=== PATIENT | female | born 1945 | race Caucasian/White ===

== ENCOUNTER → 2019-02-12 12:42 | Outpatient (CLI) | payer MEDICARE, SELFPAY ==
--- NOTE | 2019-02-12 | DI.RAD.S_ITS ---
PROCEDURE: XR CHEST 2V INDICATIONS: Acquired absence of other specified parts of digestive tract TECHNIQUE: 2 views of the chest were acquired. COMPARISON: [facility], , CHEST 2 VIEW, 03/17/2016, 15:07. FINDINGS: Surgical changes and devices: None. Lungs and pleura: Lungs are clear. No pleural effusions or pneumothorax. Mediastinum: Mediastinal contours are normal. Heart size is normal. Bones and chest wall: No suspicious bony abnormalities. Soft tissues appear unremarkable. IMPRESSION: No acute cardiopulmonary disease. Dictated by: Mili Campbell M.D. on 02/12/2019 at 14:52 Approved by: Mili Campbell M.D. on 02/12/2019 at 14:53
== END ==
PROVIDERS: Family Provider Family Medicine; PCP Family Medicine
DX: Z01.811 Encounter for preprocedural respiratory examination (principal); K55.9 Vascular disorder of intestine, unspecified; Z93.3 Colostomy status; Z98.890 Other specified postprocedural states; Z90.49 Acquired absence of other specified parts of digestive tract
CPT/HCPCS: 71046

== ENCOUNTER 2019-04-27 14:10 | Emergency (ER) | payer MEDICARE, SELFPAY ==
[2019-04-27 14:20] VITALS: BP 135/79; PULSE 74; RESP 12; TEMP 36.8; O2SAT 98
--- NOTE | 2019-04-27 15:05 | ED.ABDPAIN ---
HPI - Abdominal Pain General Chief Complaint: Abdominal Pain Stated Complaint: might have damaged a surgical sight abdominal loc Time Seen by Provider: 04/27/19 14:19 Source: patient Mode of arrival: ambulatory Limitations: no limitations History of Present Illness HPI narrative: Patient is a 73-year-old female who presents with abdominal pain. 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 6 weeks ago she had a takedown reversal of her colostomy in [place]. That has been healing well. She continues to have bowel movements and passing gas. However she is 6 weeks out from her takedown she states she pushed a very heavy statue across the floor the other day and is now feeling some bloating and some abdominal discomfort. She denies any nausea or vomiting. MD complaint: abdominal pain Pain Consistency: constant Severity: mild Quality: fullness Migration to: no migration Relieving factors: nothing Exacerbating factors: nothing Related Data Home Medications Medication Instructions Recorded Confirmed dextroamphetamine-amphetamine 1 tab PO Q DAY #0 11/11/10 [Adderall XR] Review of Systems Review of Systems GENERAL: Denies chills, fatigue, malaise, fever, sweats, travel HEENT: Denies sinus pain, ear pain, sore throat, difficulty swallowing, neck pain RESPIRATORY: Denies dyspnea, cough, wheezing, hemoptysis, sputum. CARDIOVASCULAR: Denies chest pain, palpitations, orthopnea, edema GASTROINTESTINAL: See HPI : Denies dysuria, frequency, incontinence, hematuria, urinary retention, flank pain. MUSCULOSKELETAL: Denies weakness, joint pain, or bony pain SKIN: No rash, no erythema, no pruritus NEUROLOGIC: Denies weakness, dizziness, headache, numbness, change in speech, confusion PSYCHIATRIC: No concerning psychosocial issues. 12 point review of systems is negative except for those stated above and HPI [facility] Medical History Hyperlipidemia (Acute) Hypertension (Acute) Social History (Updated 04/27/19 @ 16:17 by Khushi Rodriguez DO) Smoking Status: Never smoker alcohol intake: never substance use type: does not use Social History Smoking Status: Never smoker alcohol intake: never substance use type: does not use Exam Initial Vital Signs Initial Vital Signs: Vital Signs Temperature 98.2 F 04/27/19 14:20 Pulse Rate 74 04/27/19 14:20 Respiratory Rate 12 04/27/19 14:20 Blood Pressure 135/79 04/27/19 14:20 Pulse Oximetry 98 04/27/19 14:20 GENERAL: Well-appearing, well-nourished and in no acute distress. HEENT: Head atraumatic,EOMI, pupils reactive, CARDIOVASCULAR: Regular rate and rhythm without murmurs, rubs or gallops. RESPIRATORY: Breath sounds equal bilaterally, no wheezes rales or rhonchi. ABDOMEN: Soft, no significant distension, scarring. Site of colostomy noted no significant erythema no bleeding EXTREMITIES: Normal range of motion, no clubbing or edema. Neurovascularly intact NEUROLOGICAL: Alert and oriented x4.Normal gait and speech. Cranial nerves II through XII grossly intact. SKIN: Warm, dry, no laceration, no petechiae, no rashes or lesions. Course Orders Ordered: ED Orders 04/27/19 15:05 CT abdomen pelvis w con Stat 04/27/19 15:15 Complete Blood Count AUTO DIFF Stat Comprehensive Metabolic Panel Stat Lipase Stat 04/27/19 16:46 Amylase Stat C-Reactive Protein Quant Stat Vital Signs - 8 hr 04/27/19 14:20 04/27/19 17:10 Temperature 98.2 F Pulse Rate 74 85 Respiratory Rate 12 16 Blood Pressure 135/79 130/83 Pulse Oximetry 98 97 MDM - Abdominal Pain Lab Data Attestation: I reviewed the patient's lab results. Result diagrams: 04/27/19 15:15 04/27/19 15:15 Lab Results 04/27/19 04/27/19 04/27/19 Range/Units 15:15 15:15 16:46 WBC 6.9 (4.5-11.0) X10^3/uL RBC 4.20 (4.0-5.2) X10^6/uL Hgb 13.2 (12.0-16.0) g/dL Hct 38.5 (36-46) % MCV 91.6 (80-100) fL MCH 31.4 (26-34) PG MCHC 34.3 (30-36) % RDW 13.3 (11.6-14.8) % Plt Count 453 H (150-400) X10^3/uL Neut % (Auto) Not Reportable Lymph % (Auto) Not Reportable [place] % (Auto) Not Reportable Eos % (Auto) Not Reportable Baso % (Auto) Not Reportable Lymph # (Auto) Not Reportable [place] # (Auto) Not Reportable Baso # (Auto) Not Reportable Total Counted 100 Seg Neutrophils % 55.0 (38-70) % Lymphocytes % (Manual) 36.0 (25-45) % Atypical Lymphs % 1.0 H ( - 0) % Monocytes % (Manual) 8.0 (2-11) % Neutrophils # (Manual) 3795 (4202-8899) /uL RBC Morphology Normal morphology Sodium 138 (137-145) mmol/L Potassium 4.0 (3.4-5.1) mmol/L Chloride 101 (98-107) mmol/L Carbon Dioxide 27 (22-32) mmol/L BUN 22 H (7-17) mg/dL Creatinine 0.60 (0.52-1.04) mg/dL Estimated GFR > 60.0 (>60) mL/min BUN/Creatinine Ratio 36.7 H (6-22) Glucose 97 (80-110) mg/dL Calcium 9.5 (8.4-10.2) mg/dL Total Bilirubin 0.9 (0.2-1.3) mg/dL AST 25 (14-36) IU/L ALT 38 (9-52) IU/L Alkaline Phosphatase 85 (38-126) U/L C-Reactive Protein < 0.5 (<1.0) mg/dL Total Protein 6.8 (6.3-8.2) g/dL Albumin 4.3 (3.5-5.0) g/dL Globulin 2.5 (1.7-4.1) g/dL Albumin/Globulin Ratio 1.7 (1.0-2.8) Amylase 197 H (30-110) U/L Lipase 1325 H (23-300) U/L Imaging Data CT scan - abdomen: Radiologist's impression: PROCEDURE: CT ABDOMEN PELVIS W CON INDICATIONS: ab pain recent surgery and colostomy take down TECHNIQUE: After the administration of intravenous contrast, 5 mm thick sections acquired from the diaphragm to the symphysis. 5 mm coronal and sagittal reformats were acquired. For radiation dose reduction, the following was used: automated exposure control, adjustment of mA and/or kV according to patient size. COMPARISON: None. FINDINGS: Image quality: Excellent. ABDOMEN: Lung bases: Lung bases are clear. Heart size is normal. Solid organs: Liver is normal in size and enhancement. Gallbladder wall is not thickened. Biliary system is non dilated. Pancreas enhances normally. Spleen is normal in size and enhancement. No adrenal nodules. Kidneys demonstrate normal size and enhancement, without hydronephrosis. On the posterior aspect of the right kidney anteriorly, there is a 9 mm exophytic lesion that measures 30 Hounsfield units. No additional focal renal lesions are seen. Peritoneum and bowel: There is a sigmoid anastomotic staple line seen. No focal abnormalities are seen at this site. No dilated loops of small bowel are seen. Air or significant free fluid can be seen. No loculated abscess collections are seen. Nodes and vessels: No retroperitoneal or mesenteric adenopathy by size criteria. Aorta and inferior vena cava are normal in size. Miscellaneous: No ventral hernias. Her postoperative change of the inferior wall cannot be seen. PELVIS: Genitourinary: Bladder wall thickness is normal. Miscellaneous: No inguinal hernias or adenopathy. Bones: No suspicious bony lesions. No vertebral body compression fractures. Mild dextroconvex scoliotic curvature is seen. Age-appropriate bony degenerative changes are seen, which are worse involving the L4-L5 and S1 levels. IMPRESSION: No imaging explanation is found for this patient's presenting symptoms. Postoperative change of the sigmoid colon, with an anastomotic staple line. Incidental note is made of a 9 mm lesion along the posterior aspect of the right kidney that cannot be defined as a simple cyst. Additional imaging is recommended, either with a renal ultrasound (to confirm a hyperdense cyst) or a renal mass protocol CT (to evaluate for the possibility of a renal mass). Incidental note is made of: Lower lumbar spine degenerative change Dextroconvex scoliotic curvature Dictated by: Ronny Chirinos M.D. on 04/27/2019 at 15:12 MDM Narrative Medical decision making narrative: Patient is noted to have elevated lipase of 1300. She has no significant abdominal pain no nausea no vomiting. She can tolerate oral fluids. She does not have signs or symptoms of pancreatitis clinically. CT also does not mention any signs of pancreatitis. I have called and spoken with patient's PCP Dr. Rivera. She has an appointment with her tomorrow morning. She recommends adding amylase and CRP, will follow up with patient tomorrow at likely recheck labs. But agrees with patient going home. At this time patient is wanting to go home and not be admitted. Discharge Plan Departure Patient Disposition: Home Clinical Impression: Abdominal pain Qualifiers: Abdominal location: left lower quadrant Qualified Code(s): R10.32 - Left lower quadrant pain Discharge Date/Time: 04/27/19 17:11 Interventions: ED Discharge Assessment Last Done: 04/27/19 17:10 Instructions: DI for Abdominal Pain-Adult Activity Restrictions/Additional Instructions: *You have been diagnosed with abdominal pain *What to do: Blood work in CT today do not show any abnormality *Continue to take medications as directed *Follow up with your primary care provider in 2-3 days *Return to ER if you should have increased abdominal pain persistent vomiting bloating or any new, worsening or concerning symptoms Prescriptions: No Action dextroamphetamine-amphetamine [Adderall XR] 5 MG capsule,extended release 24hr 1 tab PO Q DAY Qty: 0 RF: 0 Referrals: Mery Rivera MD [Primary Care Provider] -
[2019-04-27 15:24] LABS: Hematocrit 38.5 % (36-46); Hemoglobin 13.2 g/dL (12.0-16.0); Mean Corpuscular HGB Conc 34.3 % (30-36); Mean Corpuscular Hemoglobin 31.4 PG (26-34); Mean Corpuscular Volume 91.6 fL (80-100); Platelet Count 453 X10^3/uL (150-400); Red Cell Distribution Width 13.3 % (11.6-14.8); White Blood Cell Count 6.9 X10^3/uL (4.5-11.0)
[2019-04-27 15:33] LABS: Add Manual Diff / Slide Review YES
[2019-04-27 15:38] LABS: Alanine Aminotransferase 38 IU/L (9-52); Albumin 4.3 g/dL (3.5-5.0); Albumin Globulin Ratio 1.7 (1.0-2.8); Alkaline Phosphatase 85 U/L (38-126); Aspartate Aminotransferase 25 IU/L (14-36); BUN Creatinine Ratio 36.7 (6-22); Bilirubin Total 0.9 mg/dL (0.2-1.3); Blood Urea Nitrogen 22 mg/dL (7-17); Calcium 9.5 mg/dL (8.4-10.2); Carbon Dioxide 27 mmol/L (22-32); Chloride 101 mmol/L (98-107); Estimated Glomerular Filt Rate > 60.0 mL/min (>60); Globulin 2.5 g/dL (1.7-4.1); Glucose 97 mg/dL (80-110); HEMOLYSIS < 15 (0-50); Lipase 1325 U/L (23-300); Sodium 138 mmol/L (137-145); Total Protein 6.8 g/dL (6.3-8.2)
[2019-04-27 16:39] LABS: Neutrophils Absolute Manual 3795 /uL (3000-5900); RBC Morphology Normal Morphology; Total Cells Counted 100
[2019-04-27 16:58] LABS: Amylase 197 U/L (30-110)
[2019-04-27 17:00] LABS: C-Reactive Protein Quant < 0.5 mg/dL (<1.0)
[2019-04-27 17:10] VITALS: BP 130/83; PULSE 85; RESP 16; O2SAT 97
== END 2019-04-27 17:11 | disposition home or self-care (01) ==
PROVIDERS: Emergency Provider Emergency Medicine; PCP Family Medicine
DX: R10.32 Left lower quadrant pain (principal)
CPT/HCPCS: 36591; 74177; 80053; 82150; 83690; 85025; 86140; 99282; 99285; Q9967

== ENCOUNTER → 2019-08-23 12:03 | Outpatient (CLI) | payer MEDICARE, SELFPAY ==
--- NOTE | 2019-08-23 | DI.MG.S_ITS ---
BILATERAL DIGITAL SCREENING MAMMOGRAM 3D/2D WITH CAD: 08/23/2019 CLINICAL: Routine screening. Family history of breast cancer. Comparison is made to exams dated: 08/06/2017 mammogram, 08/19/2015 mammogram, and 05/25/2014 mammogram - [facility]. There are scattered fibroglandular elements in both breasts. Current study was also evaluated with a Computer Aided Detection (CAD) system. No significant masses, calcifications, or other findings are seen in either breast. There has been no significant interval change. IMPRESSION: NEGATIVE There is no mammographic evidence of malignancy. A 1 year screening mammogram is recommended. This exam was interpreted at Station ID: [id number]. NOTE: For mammograms, a report in lay terms will be sent to the patient. Approximately 15% of breast malignancies will not be visualized mammographically. In the management of a palpable breast mass, a negative mammogram must not discourage biopsy of a clinically suspicious lesion. Electronically Signed By: Emeterio good/pardeep:08/25/2019 08:44:02 letter sent: Normal Exam ACR BI-RADS Category 1: Negative 3341F
== END ==
PROVIDERS: PCP Family Medicine; Visit Provider Family Medicine
DX: Z12.31 Encounter for screening mammogram for malignant neoplasm of breast (principal); Z80.3 Family history of malignant neoplasm of breast
CPT/HCPCS: 77063; 77067

== ENCOUNTER → 2020-11-03 10:39 | Outpatient (CLI) | payer MEDICARE, OTHER, SELFPAY ==
--- NOTE | 2020-11-03 | DI.MG.S_ITS ---
BILATERAL DIGITAL SCREENING MAMMOGRAM 3D/2D WITH CAD: 11/03/2020 CLINICAL: Routine screening. Family history of breast cancer. Comparison is made to exams dated: 08/06/2017 mammogram, 08/23/2019 mammogram, and 08/19/[address] mamm[address] - [facility]. There are scattered fibroglandular elements in both breasts. Current study was also evaluated with a Computer Aided Detection (CAD) system. No significant masses, calcifications, or other findings are seen in either breast. There has been no significant interval change. IMPRESSION: NEGATIVE There is no mammographic evidence of malignancy. A 1 year screening mammogram is recommended. This exam was interpreted at Station ID: [id number]. NOTE: For mammograms, a report in lay terms will be sent to the patient. Approximately 15% of breast malignancies will not be visualized mammographically. In the management of a palpable breast mass, a negative mammogram must not discourage biopsy of a clinically suspicious lesion. Electronically Signed By: Damian roldan/pardeep:11/03/2020 11:26:15 copy to: Carson Mathews MD, Dr. Carson Mathews, ph: [phone] letter sent: Normal Exam ACR BI-RADS Category 1: Negative 3341F
== END ==
PROVIDERS: PCP Family Medicine; Referring Provider Family Medicine; Visit Provider Family Medicine
DX: Z12.31 Encounter for screening mammogram for malignant neoplasm of breast (principal); Z80.3 Family history of malignant neoplasm of breast
CPT/HCPCS: 77063; 77067

== ENCOUNTER → 2021-08-04 08:31 | Outpatient (CLI) | payer MEDICARE, OTHER, SELFPAY ==
[2021-08-04 09:22] LABS: Add Manual Diff / Slide Review NO; Basophils Absolute Auto 100 /uL (0-100); Eosinophils Absolute Auto 100 /uL (0-450); Eosinophils Percent Auto 3.2 % (2-4); Hematocrit 36.8 % (36-46); Hemoglobin 12.6 g/dL (12.0-16.0); Lymphocytes Absolute Auto 1500 /uL (1100-4500); Lymphocytes Percent Auto 49.7 % (25-40); Mean Corpuscular HGB Conc 34.1 % (30-36); Mean Corpuscular Volume 91.1 fL (80-100); Monocytes Absolute Auto 400 /uL (0-900); Monocytes Percent Auto 12.5 % (3-14); Neutrophils Absolute Auto 1000 /uL (1500-7000); Neutrophils Percent Auto 31.6 % (50-75); Platelet Count 342 X10^3/uL (150-400); Red Blood Cell Count 4.05 X10^6/uL (4.0-5.2); Red Cell Distribution Width 14.2 % (11.6-14.8)
[2021-08-04 10:14] LABS: Alanine Aminotransferase 29 IU/L (<35); Albumin 3.8 g/dL (3.5-5.0); Albumin Globulin Ratio 1.7 (1.0-2.8); Alkaline Phosphatase 75 U/L (38-126); Aspartate Aminotransferase 25 IU/L (14-36); BUN Creatinine Ratio 25.9 (6-22); Bilirubin Total 1.1 mg/dL (0.2-1.3); Blood Urea Nitrogen 21 mg/dL (7-17); Calcium 9.4 mg/dL (8.4-10.2); Carbon Dioxide 30 mmol/L (22-32); Chloride 105 mmol/L (98-107); Cholesterol 162 mg/dL (140-199); Estimated Glomerular Filt Rate > 60.0 mL/min (>60); Globulin 2.2 g/dL (1.7-4.1); Glucose 93 mg/dL (80-110); HDL Cholesterol 69 mg/dL (40-60); HEMOLYSIS < 15 (0-50); LDL Cholesterol Calculated 83 mg/dL (<100); Sodium 139 mmol/L (137-145); Triglycerides 51 mg/dL (35-150)
== END ==
PROVIDERS: PCP Family Medicine; Referring Provider Family Medicine; Visit Provider Family Medicine
DX: E78.5 Hyperlipidemia, unspecified (principal)
CPT/HCPCS: 36415; 80053; 80061; 85025

== ENCOUNTER → 2021-08-05 09:38 | Outpatient (CLI) | payer MEDICARE, OTHER, SELFPAY ==
--- NOTE | 2021-08-05 | DI.RAD.S_ITS ---
PROCEDURE: XR DEXA AXIAL SKELETON INDICATIONS: OSTEOPOROSIS COMPARISON: None. FINDINGS: This blank DEXA report has been sent in error by the PACS system. The correct and complete report will be forthcoming in 1-2 days. Thank you for your patience and understanding. Dictated by: Annette Tyler MD, PhD on 08/05/2021 at 16:09 Approved by: Annette Tyler MD, PhD on 08/05/2021 at 16:10
== END ==
PROVIDERS: PCP Family Medicine; Referring Provider Family Medicine; Visit Provider Family Medicine
DX: M81.0 Age-related osteoporosis without current pathological fracture (principal); Z78.0 Asymptomatic menopausal state; Z82.62 Family history of osteoporosis
CPT/HCPCS: 77080

== ENCOUNTER → 2021-08-06 09:07 | Outpatient (CLI) | payer MEDICARE, OTHER, SELFPAY ==
[2021-08-06 09:49] LABS: COVID19 -Nasal RAPID Negative (Negative)
== END ==
PROVIDERS: PCP Family Medicine; Visit Provider Nurse Practitioner Family
DX: Z20.822 Contact with and (suspected) exposure to COVID-19 (principal)
CPT/HCPCS: 87635

== ENCOUNTER → 2022-02-08 11:43 | Outpatient (CLI) | payer MEDICARE, OTHER, SELFPAY ==
--- NOTE | 2022-02-08 11:44 | DI.MG.S_ITS ---
BILATERAL DIGITAL SCREENING MAMMOGRAM 3D/2D WITH CAD: 02/08/2022 CLINICAL: Routine screening. Family history of breast cancer. Comparison is made to exams dated: 11/03/2020 mammogram, 08/23/2019 mammogram, and 08/06/2017 mammogram - [facility]. There are scattered fibroglandular elements in both breasts. Current study was also evaluated with a Computer Aided Detection (CAD) system. No significant masses, calcifications, or other findings are seen in either breast. There has been no significant interval change. IMPRESSION: NEGATIVE There is no mammographic evidence of malignancy. A 1 year screening mammogram is recommended. This exam was interpreted at Station ID: [id number]. NOTE: For mammograms, a report in lay terms will be sent to the patient. Approximately 15% of breast malignancies will not be visualized mammographically. In the management of a palpable breast mass, a negative mammogram must not discourage biopsy of a clinically suspicious lesion. Electronically Signed By: Bev gonzalez/pardeep:02/08/2022 16:06:02 copy to: Carson Mathews MD, Dr. Carson Mathews, ph: [phone] letter sent: Normal Exam ACR BI-RADS Category 1: Negative 3341F
== END ==
PROVIDERS: PCP Family Medicine; Referring Provider Family Medicine; Visit Provider Family Medicine
DX: Z12.31 Encounter for screening mammogram for malignant neoplasm of breast (principal); Z80.3 Family history of malignant neoplasm of breast
CPT/HCPCS: 77063; 77067

== ENCOUNTER → 2022-06-06 09:19 | Outpatient (CLI) | payer MEDICARE, OTHER, SELFPAY ==
--- NOTE | 2022-06-06 09:21 | DI.MRI.S_ITS ---
PROCEDURE: MR SHOULDER RT WO CON INDICATIONS: Disorder of synovium and tendon, right shoulder TECHNIQUE: Noncontrast oblique coronal T2 fast spin echo with fat saturation, oblique sagittal T1 spin echo and T2 fast spin echo with fat saturation, axial T1 spin echo and T2 fast spin echo with fat saturation through the shoulder. COMPARISON: None. FINDINGS: Image quality: Excellent. Rotator cuff: There is full-thickness rupture involving anterior to mid fibers of distal supraspinatus at its insertion on humeral head with up to 1.9 cm medial retraction of torn tendon fibers to the level of acromion. Tendinosis and low-grade articular surface partial-thickness tear involving posterior fibers of distal supraspinatus and distal infraspinatus is seen. Tendinosis and low-grade partial-thickness tear involving superior fibers of distal subscapularis is also noted. Sagittal images demonstrate mild to moderate supraspinatus muscle atrophy. Bones and bursae: No bone marrow contusions or fractures. Moderate acromioclavicular joint osteoarthritic changes are seen with joint space narrowing and downward osteophyte formation depressing the musculotendinous junction of supraspinatus. There is moderate subacromial subdeltoid bursal fluid. No gross loose bodies. Capsule and soft tissues: Signal abnormality and contour irregularity involving superior anterior labrum at 12 to 1 o'clock position concerning for superior anterior labral tear. The long head of the biceps tendon appears thickened with intrasubstance T2 hyperintense signal. The rotator interval appears normal, without fibrosis. The coracohumeral ligament is normal in thickness. IMPRESSION: 1. Full-thickness rupture involving anterior to mid fibers of distal supraspinatus at its insertion on the humeral head with up to 1.9 cm medial retraction of torn tendon fibers to the level of acromion. Tendinosis and low-grade articular surface partial-thickness tear involving posterior fibers of distal supraspinatus and distal infraspinatus. Low-grade partial-thickness tear involving superior fibers of distal subscapularis. Mild to moderate supraspinatus muscle atrophy. 2. Moderate acromioclavicular joint osteoarthritis. No fracture or dislocation. Moderate amount of subacromial subdeltoid bursal fluid. No gross loose bodies. 3. Suggestion of superior anterior labral tear at 12 to 1 o'clock position. 4. Tendinosis and low-grade intrasubstance partial-thickness tear involving proximal intra-articular portion of long head of biceps. Dictated by: He Morales M.D. on 06/06/2022 at 11:54 Approved by: He Morales M.D. on 06/06/2022 at 12:08
== END ==
PROVIDERS: PCP Family Medicine; Referring Provider Orthopaedic Surgery; Visit Provider Orthopaedic Surgery
DX: M75.121 Complete rotator cuff tear or rupture of right shoulder, not specified as traumatic (principal); M19.011 Primary osteoarthritis, right shoulder; S46.111A Strain of muscle, fascia and tendon of long head of biceps, right arm, initial encounter; R29.898 Other symptoms and signs involving the musculoskeletal system
CPT/HCPCS: 73221

== ENCOUNTER → 2023-01-24 09:45 | Outpatient (CLI) | payer MEDICARE, OTHER, SELFPAY ==
--- NOTE | 2023-01-24 | DI.RAD.S_ITS ---
Bone Density Report Name: MAAME ZEE Age: 77 Sex: Female Ethnicity: White Date of : 1945 Indication: postmenopausal osteoporosis; monitoring treatment; Referring Provider: MAAME MUSA Study: Bone densitometry was performed. Exam Date: January 24, 2023 Accession number: [id number] Bone Density: Region BMD T-score Z-score Classification AP Spine(L1, L3) 0.849 -1.5 0.9 Osteopenia Femoral Neck (Left) 0.547 -2.7 -0.6 Osteoporosis Total Hip (Left) 0.680 -2.2 -0.3 Osteopenia Femoral Neck (Right) 0.454 -3.6 -1.5 Osteoporosis Total Hip (Right) 0.604 -2.8 -1.0 Osteoporosis Total Hip Mean 0.642 -2.5 -0.7 Osteoporosis World Health Organization criteria for BMD impression classify patients as: Normal (T-score at or above -1.0), Osteopenia (T-score between -1.0 and -2.5), or Osteoporosis (T-score at or below -2.5). 10-year Fracture Risk: FRAX not reported because: Some T-score for Spine Total or Hip Total or Femoral Neck at or below -2.5 Treated for osteoporosis Previous Exams: -- Region Exam Age BMD T-score BMD Change BMD Change Date g/cm2 vs Baseline vs Previous -- AP Spine (L1,L3) 01/24/2023 77 0.849 -1.5 0.067 (8.6%)# 0.067 (8.6%)# 08/05/2021 76 0.782 -2.1 Total Hip(Left) 01/24/2023 77 0.680 -2.2 0.052 (8.3%)# 0.052 (8.3%)# 08/05/2021 76 0.628 -2.6 Total Hip(Right) 01/24/2023 77 0.604 -2.8 -0.002 (-0.3%)# -0.002 (-0.3%)# 08/05/2021 76 0.606 -2.8 -- *Denotes significance at 95% confidence level, LSC for AP Spine = 0.022 g/cm2, LSC for Total Hip = 0.027 g/cm2 # Denotes dissimilar scan types or analysis methods Impression: The patient has osteoporosis, based on the Right Femoral Neck T-score. No significant bone loss was observed. Discussion: PATIENT UNDER TREATMENT WITH NO SIGNIFICANT BMD LOSS SINCE LAST EXAM. In an untreated patient, BMD typically declines with age. A lack of decline or gain is usually a sign that treatment is efficacious and fracture risk is reduced. It is important to ask patients whether they are taking their medications and to encourage continued and appropriate compliance with their osteoporosis therapies to reduce fracture risk. It is also important to review their risk factors and encourage appropriate calcium and vitamin D intakes, exercise, fall prevention and other lifestyle measures. Follow-Up: Consider a repeat BMD and Vertebral Fracture Assessment (VFA) exam in 2 years or sooner if medically necessary, to reassess this patient's status. Reported by: ROSE MÁRQUEZ M.D. on 01/24/2023 3:25:00 PM.
--- NOTE | 2023-01-25 01:10 | DI.NM.S_ITS ---
DATE OF SERVICE: 01/24/2023 PROCEDURE PERFORMED: Exercise treadmill stress and rest myocardial perfusion imaging with gating to assess ejection fraction and regional wall motion. ORDERING PROVIDER: Dr. Mery Rivera. INDICATIONS: The patient is a 77-year-old female with exertional dyspnea and exercise intolerance. CARDIAC STRESS: The patient was able to exercise for 8 minutes, 15 seconds on a standard Héctor protocol suggesting exceptional exercise capacity with an SUZI of -55%, achieving 8.3 METS. She had a normal heart rate and blood pressure response to exercise, achieving a maximum heart rate of 129 BPM (89% of her predicted maximum). She had no chest discomfort or other anginal symptoms. Her resting ECG is normal and there are no significant ST-segment shifts or arrhythmias with stress. At 7 minutes and 11 seconds of exercise at a heart rate of 122 BPM, 24.4 millicuries of technetium-99m Myoview was injected and she was imaged 15 minutes later using a gated SPECT acquisition protocol. Earlier in the day while at rest, she had been injected with 12.8 millicuries of technetium-99m Myoview and was imaged 15 minutes later again with a gated SPECT protocol. FINDINGS: 1. Raw data. There is fair myocardial tracer uptake with mild breast shadows noted that produce slight attenuation. The resting images have some mild subdiaphragmatic tracer activity adjacent to the inferior wall that affects the interpretation. The lung/heart ratio is normal at 0.20 with a normal TID ratio of 0.88. 2. Quantitated gated SPECT: Post-stress ejection fraction is estimated at 88% without any focal wall motion abnormality. Resting ejection fraction is also 88% with a normal resting end-diastolic volume of 65 mL. 3. Myocardial perfusion imaging: Post-stress supine images show a subtle defect in the distal portion of the left ventricle in a pattern consistent with breast attenuation artifact, supported by its complete resolution on prone imaging, revealing a normal perfusion pattern. The resting images show an identical perfusion pattern to that of the post-stress supine images without any areas of significant improvement. IMPRESSION: 1. Normal myocardial perfusion study. 2. Mild, fixed distal perfusion defect that completely resolves on prone imaging, consistent with breast attenuation artifact. There is no compelling evidence for any myocardial ischemia or previous myocardial infarction. 3. Normal left ventricular size and function without any focal wall motion abnormality. 4. Exceptional exercise capacity without angina or ECG abnormalities. Mery Merlos TAYLOR/martha/mathieu doc#: [id number]/job#: [id number] dd: 01/24/2023 16:28:00 dt: 01/24/2023 23:26:00 DICTATING MD/COPIES TO: aCrlos Rodas MD; Mery Rivera MD COPIES MNE: KATHERINE;
== END ==
PROVIDERS: PCP Family Medicine; Referring Provider Family Medicine; Visit Provider Family Medicine
DX: M81.0 Age-related osteoporosis without current pathological fracture (principal); R06.09 Other forms of dyspnea; R53.83 Other fatigue
CPT/HCPCS: 77080; 78452; 93017; A9502

== ENCOUNTER → 2023-03-14 08:20 | Outpatient (CLI) | payer MEDICARE, OTHER, SELFPAY ==
--- NOTE | 2023-03-14 | DI.MG.S_ITS ---
BILATERAL DIGITAL SCREENING MAMMOGRAM 3D/2D WITH CAD: 03/14/2023 CLINICAL: Routine screening. Family history of breast cancer. Comparison is made to exams dated: 02/08/2022 mammogram, 11/03/2020 mammogram, and 08/23/2019 mammogram - [facility]. There are scattered areas of fibroglandular density in both breasts (category b / 25%-50% glandular tissue). Current study was also evaluated with a Computer Aided Detection (CAD) system. No significant masses, calcifications, or other findings are seen in either breast. There has been no significant interval change. IMPRESSION: NEGATIVE There is no mammographic evidence of malignancy. A 1 year screening mammogram is recommended. Based on the Tyrer Cuzick model (a risk assessment model) the patient's lifetime risk is 6.7% and her 10 year risk is 6.7%. According to the ACR, ACS, and NCCN guidelines, an annual breast MRI exam along with mammogram is recommended if the patient's lifetime risk is 20% or greater. This exam was interpreted at Station ID: [id number]. NOTE: For mammograms, a report in lay terms will be sent to the patient. Approximately 15% of breast malignancies will not be visualized mammographically. In the management of a palpable breast mass, a negative mammogram must not discourage biopsy of a clinically suspicious lesion. Electronically Signed By: Bam velasquez/pardeep:03/14/2023 09:15:39 copy to: Carson Mathews MD, Dr. Carson Mathews, ph: [phone] letter sent: Normal Exam ACR BI-RADS Category 1: Negative 3341F
== END ==
PROVIDERS: PCP Family Medicine; Referring Provider Family Medicine; Visit Provider Family Medicine
DX: Z12.31 Encounter for screening mammogram for malignant neoplasm of breast (principal); Z80.3 Family history of malignant neoplasm of breast
CPT/HCPCS: 77063; 77067

== ENCOUNTER → 2024-01-29 10:39 | Outpatient (CLI) | payer MEDICARE, OTHER, SELFPAY ==
--- NOTE | 2024-01-29 10:40 | DI.RAD.S_ITS ---
PROCEDURE: XR DEXA AXIAL SKELETON INDICATIONS: OSTEOPOROSIS SCREENING COMPARISON: [facility], CR, XR DEXA AXIAL SKELETON, 01/24/2023, 11:03. [facility], CR, XR DEXA AXIAL SKELETON, 08/05/2021, 10:10. FINDINGS: Lumbar Spine: Bone mineral density 0.867 g/cm2, T score -1.3. Prior DEXA was performed utilizing dissimilar scan type or analysis method. Left Hip: Bone mineral density is 0.679 g/cm2, T score -2.2. Prior DEXA was performed utilizing dissimilar scan type or analysis method. Left Femoral Neck: Bone mineral density 0.551 g/cm2, T score -2.7. Right Hip: Bone mineral density 0.606 g/cm2, T score -2.8. Prior DEXA was performed utilizing dissimilar scan type or analysis method. Right Femoral Neck: Bone mineral density is 0.487 g/cm2, T score -3.3. Fracture Risk Calculation (when applicable): FRAX score not reported due to T-score less than -2.5. (T score greater or equal to -1.0 to: NORMAL) (T score from -1.1 to -2.4: OSTEOPENIA) (T score less than or equal to -2.5: OSTEOPOROSIS) IMPRESSION: By WHO criteria, patient has osteoporosis. Follow-up guidelines as follows: Osteoporosis: Consider a repeat DEXA and Vertebral Fracture Assessment (VFA) exam in 2 years or sooner if medically necessary, to reassess this patient's status. Osteopenia: Consider a repeat DEXA in 2-3 years to reassess this patient's status, or if there is a new clinical indication. Normal: Consider a repeat DEXA in 5 years or sooner, or if there is a new clinical indication. All treatment decisions require clinical judgment and consideration of individual patient factors, including patient preferences, comorbidities, previous drug use, risk factors not captured in the FRAX model (e.g., frailty, falls, vitamin D deficiency, increased bone turnover, interval significant decline in bone density ) and possible under- or over-estimation of fracture risk by FRAX. In addition, the NOF Guide recommends that FDA-approved medical therapies be considered in postmenopausal women and men age >= 50 years with a: * Hip or vertebral (clinical or morphometric) fracture * T-score of <=-2.5 at the spine or hip * Ten-year fracture probability by FRAX of >= 3% for hip fracture or >=20% for major osteoporotic fracture. People with diagnosed cases of osteoporosis or at high risk for fracture should have regular bone mineral density tests. For patients eligible for Medicare, routine testing is allowed once every 2 years. The testing frequency can be increased to one year for patients who have rapidly progressing disease, those who are receiving or discontinuing medical therapy to restore bone mass, or have additional risk factors. Approved by: Damian Cast M.D. on 01/29/2024 at 16:21
== END ==
PROVIDERS: PCP Family Medicine; Referring Provider Family Medicine; Visit Provider Family Medicine
DX: M81.0 Age-related osteoporosis without current pathological fracture (principal)
CPT/HCPCS: 77080

== ENCOUNTER → 2024-04-22 11:22 | Outpatient (CLI) | payer MEDICARE, OTHER, SELFPAY ==
--- NOTE | 2024-04-22 11:24 | DI.MG.S_ITS ---
BILATERAL DIGITAL SCREENING MAMMOGRAM 3D/2D WITH CAD: 04/22/2024 CLINICAL: Routine screening. Family history of breast cancer. Comparison is made to exams dated: 03/14/2023 mammogram, 02/08/2022 mammogram, and 11/03/2020 mammogram - [facility]. There are scattered areas of fibroglandular density in both breasts (category b / 25%-50% glandular tissue). Current study was also evaluated with a Computer Aided Detection (CAD) system. There are benign post operative findings in the right breast. No significant masses, calcifications, or other findings are seen in either breast. There has been no significant interval change. IMPRESSION: BENIGN There is no mammographic evidence of malignancy. A 1 year screening mammogram is recommended. Based on the Tyrer Cuzick model (a risk assessment model) the patient's lifetime risk is 6.1% and her 10 year risk is 0.0%. According to the ACR, ACS, and NCCN guidelines, an annual breast MRI exam along with mammogram is recommended if the patient's lifetime risk is 20% or greater. This exam was interpreted at Station ID: [id number]. NOTE: For mammograms, a report in lay terms will be sent to the patient. Approximately 15% of breast malignancies will not be visualized mammographically. In the management of a palpable breast mass, a negative mammogram must not discourage biopsy of a clinically suspicious lesion. Electronically Signed By: Liz Coleman M.D., Ph.D. angelito/pardeep:04/22/2024 16:40:34 copy to: Carson Mathews MD, Dr. Carson Mathews, ph: [phone] letter sent: Normal Exam ACR BI-RADS Category 2: Benign Finding(s) [id number]
== END ==
PROVIDERS: PCP Family Medicine; Referring Provider Family Medicine; Visit Provider Family Medicine
DX: Z12.31 Encounter for screening mammogram for malignant neoplasm of breast (principal); Z80.3 Family history of malignant neoplasm of breast; R92.323 Mammographic fibroglandular density, bilateral breasts
CPT/HCPCS: 77063; 77067

== ENCOUNTER → 2024-06-28 16:07 | Outpatient (CLI) | payer MEDICARE, OTHER, SELFPAY ==
--- NOTE | 2024-06-28 16:11 | DI.RAD.S_ITS ---
PROCEDURE: XR FOOT RT MIN 3V INDICATIONS: Right great toe, 2nd toe injury TECHNIQUE: 3 views of the foot were acquired. COMPARISON: None. FINDINGS: Bones: No fractures or dislocations. No suspicious bony lesions. First MTP arthrodesis without hardware complication. Soft tissues: No tibiotalar joint effusion. Achilles tendon appears normal. IMPRESSION: No acute bony abnormality. First MTP arthrodesis without hardware complication. Dictated by: Emanuel Sunshine M.D. on 06/28/2024 at 19:03 Approved by: Emanuel Sunshine M.D. on 06/28/2024 at 19:04
== END ==
LOC: RAD 16:10
PROVIDERS: PCP Family Medicine; Referring Provider Nurse Practitioner Family; Visit Provider Nurse Practitioner Family
DX: S99.921A Unspecified injury of right foot, initial encounter (principal); X58.XXXA Exposure to other specified factors, initial encounter
CPT/HCPCS: 73630

== ENCOUNTER → 2025-01-29 13:57 | Outpatient (CLI) | payer MEDICARE, OTHER, SELFPAY ==
--- NOTE | 2025-01-29 13:59 | DI.ECHO.S_ITS ---
[facility] : : [id number] : [place] : : [id number] : : Phone: [phone] Echocardiogram Report + + :Name: MAAME ZEE Study Date: 01/29/2025 Height: 59 in : :[facility] ReadingLocation: Weight: 110 lb : : Gender: Female BSA: 1.4 m2 : :: 1945 Age: 79 yrs BP: 120/66 mmHg: :Reason For Study: MURMUR : :Ordering Physician: LENCHO, : :MAAME Performed By: Bunny Peter : :Referring: MAAME MUSA : + + Interpretation Summary 1. The left ventricular contractility is normal. Estimated ejection fraction of greater than 60% with no segmental wall motion abnormalities. No LVH. Grade 1 diastolic dysfunction. 2. The right ventricular contractility is normal. 3. Left atrial enlargement noted. All other cardiac chambers are of normal size. 4. No significant valvular abnormalities. 5. No obvious intracardiac shunts. 6. No obvious intracardiac masses nor thrombi. 7. No hemodynamically significant pericardial effusion. 8. Low right-sided filling pressures. Conclusion: Normal biventricular systolic function with no significant valvular abnormalities. Procedure: A two-dimensional transthoracic echocardiogram with color flow and Doppler was performed. The study quality was technically good. There is no prior echocardiogram noted for this patient. The patient was in normal sinus rhythm during the exam. Left Ventricle: The left ventricle is normal in size. There is normal left ventricular wall thickness. There is no ventricular septal defect visualized. The ejection fraction is estimated to be 60-65%. There are no focal wall motion abnormalities. Diastolic parameters suggest a relaxation abnormality of the left ventricle, consistent with probable normal filling pressures. Right Ventricle: The right ventricle is normal in size and function. Atria: The left atrium is moderately dilated. Right atrial size is normal. There is no Doppler evidence for an atrial septal defect. Mitral Valve: The mitral valve is normal in structure and function. There is no mitral regurgitation noted. Aortic Valve: The aortic valve is trileaflet. The aortic valve is mildly calcified. No aortic regurgitation is present. Tricuspid Valve: The tricuspid valve leaflets are thin and pliable. There is trace tricuspid regurgitation. The right ventricular systolic pressure is estimated to be at least 25 mmHg based on an estimated right atrial pressure of 3 mm Hg. Pulmonic Valve: The pulmonic valve leaflets are thin and pliable; valve motion is normal. There is trace pulmonic regurgitation. Great Vessels: The aortic root is normal size. The dimensions of the ascending aorta are normal. The pulmonary artery is normal size. The IVC is of normal diameter and collapses greater than 50% with a sniff. This suggests a low right atrial pressure of 3 mm Hg. Pericardium/ Pleura There is no pericardial effusion. There is no pleural effusion. MMode/2D Measurements & Calculations LVIDd: 4.0 cm LVOT diam: 1.8 cm LVIDs: 2.1 cm Ao root diam: 2.9 cm FS: 46.7 % asc Aorta Diam: 3.4 cm EPSS: 0.49 cm Ao Arch Diam (Prox Trans): 1.8 cm IVSd: 0.75 cm LVPWd: 0.68 cm LV king. diameter/BSA (cm/m^2): 2.8 LV sys. diameter/BSA (cm/m^2): 1.5 LA A2 area: 18.4 cm2 RA long axis: 4.8 cm LA A4 area: 18.5 cm2 RA area: 14.0 cm2 LA length (vol): 5.2 cm RA vol: 34.6 ml LA vol: 55.7 ml RA : 24.2 ml/m2 LA vol index: 39.0 ml/m2 IVC diam: 1.7 cm RVD1 (basal): 3.3 cm RVD2 (mid): 3.0 cm TAPSE: 2.7 cm Doppler Measurements & Calculations Ao V2 max: 144.4 cm/sec LVOT Max Jose: 101.9 cm/sec Ao V2 mean: 101.5 cm/sec LV V1 max P.2 mmHg Ao max P.3 mmHg LV V1 VTI: 24.2 cm Ao mean P.6 mmHg YOANA(I,D): 2.1 cm2 Ao V2 VTI: 31.3 cm YOANA(V,D): 1.9 cm2 sev ratio: 0.77 YOANA indexed to BSA (cm^2/m^2): 1.4 MV E max jose: 84.4 cm/sec TR max jose: 233.4 cm/sec MV A max jose: 88.9 cm/sec TR max P.8 mmHg MV E/A: 0.95 PA V2 max: 104.6 cm/sec Med Peak E' Jose: 4.5 cm/sec PA V2 mean: 71.0 cm/sec E/E' med: 18.8 PA mean P.2 mmHg Lat Peak E' Jose: 6.5 cm/sec PA pr(Accel): 36.2 mmHg E/E' lat: 12.9 E/e' average: 15.9 MV dec time: 0.23 sec SV(SIVA): 64.5 ml Reading Physician:XAVIER
--- NOTE | 2025-01-29 13:59 | DI.RAD.S_ITS ---
PROCEDURE: XR DEXA AXIAL SKELETON INDICATIONS: MURMUR/osteoporosis COMPARISON: [facility], , XR DEXA AXIAL SKELETON, 01/29/2024, 10:56. [facility], CR, DEXA AXIAL SKELETON, 08/06/2017, 10:41. FINDINGS: Lumbar Spine (L1, L3): Bone mineral density 0.898 g/cm2, T score -1.0, previously-1.3. Left Femoral Neck: Bone mineral density 0.543 g/cm2, T score -2.8. Left Hip: Bone mineral density 0.685 g/cm2, T score -2.1, previously -2.2. Fracture Risk Calculation (when applicable): 10-year fracture risk of a major osteoporotic fracture 18 percent and of a hip fracture 6.5 percent. (T score greater or equal to -1.0 to: NORMAL) (T score from -1.1 to -2.4: OSTEOPENIA) (T score less than or equal to -2.5: OSTEOPOROSIS) IMPRESSION: 1. Normal bone density of the lumbar spine, although borderline osteopenic. 2. Osteoporosis of the left femoral neck. 3. Osteopenia of the left hip. Follow-up guidelines as follows: Osteoporosis: Consider a repeat DEXA and Vertebral Fracture Assessment (VFA) exam in 2 years or sooner if medically necessary, to reassess this patient's status. Osteopenia: Consider a repeat DEXA in 2-3 years to reassess this patient's status, or if there is a new clinical indication. Normal: Consider a repeat DEXA in 5 years or sooner, or if there is a new clinical indication. All treatment decisions require clinical judgment and consideration of individual patient factors, including patient preferences, comorbidities, previous drug use, risk factors not captured in the FRAX model (e.g., frailty, falls, vitamin D deficiency, increased bone turnover, interval significant decline in bone density ) and possible under- or over-estimation of fracture risk by FRAX. In addition, the NOF Guide recommends that FDA-approved medical therapies be considered in postmenopausal women and men age >= 50 years with a: * Hip or vertebral (clinical or morphometric) fracture * T-score of <=-2.5 at the spine or hip * Ten-year fracture probability by FRAX of >= 3% for hip fracture or >=20% for major osteoporotic fracture. Dictated by: Chiki Morrison M.D. on 01/30/2025 at 10:20 Approved by: Chiki Morrison M.D. on 01/30/2025 at 10:23
== END ==
PROVIDERS: PCP Family Medicine; Referring Provider Family Medicine; Visit Provider Family Medicine
DX: M81.0 Age-related osteoporosis without current pathological fracture (principal); M85.88 Other specified disorders of bone density and structure, other site; R01.1 Cardiac murmur, unspecified; I70.0 Atherosclerosis of aorta
CPT/HCPCS: 77080; 93306

== ENCOUNTER → 2025-05-11 16:59 | Outpatient (ROUT) | payer MEDICARE, OTHER, SELFPAY ==
[2025-05-11 17:52] LABS: Influenza A - CEPHEID Flu A NEGATIVE (NEGATIVE); Influenza B - CEPHEID Flu B NEGATIVE (NEGATIVE)
[2025-05-11 18:06] LABS: COVID-19 CEPHEID 4-PLEX PCR Negative (Negative)
== END ==
PROVIDERS: PCP Family Medicine; Visit Provider Family Medicine
DX: R05.1 Acute cough (principal); R50.9 Fever, unspecified
CPT/HCPCS: 87637

== ENCOUNTER → 2025-05-11 17:08 | Outpatient (CLI) | payer MEDICARE, OTHER, SELFPAY ==
--- NOTE | 2025-05-11 17:10 | DI.RAD.S_ITS ---
PROCEDURE: XR CHEST 2V INDICATIONS: COUGH TECHNIQUE: 2 views of the chest were acquired. COMPARISON: [facility], CR, XR CHEST 2V, 02/12/2019, 13:30. FINDINGS: Heart, mediastinum and pulmonary vascular: Heart is normal in size and configuration. Mediastinum is unremarkable. Pulmonary vascular is normal. Lungs: Moderate patchy right lower lobe infiltrate has developed. Suspect pneumonia Pleural spaces: Normal-no effusions or pneumothorax. 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 on 05/12/2025 at 12:09 Approved by: Arun Renee M.D. on 05/12/2025 at 12:09
== END ==
PROVIDERS: PCP Family Medicine; Referring Provider Family Medicine; Visit Provider Family Medicine
DX: J18.9 Pneumonia, unspecified organism (principal); R05.1 Acute cough; R50.9 Fever, unspecified
CPT/HCPCS: 71046; 87637

== ENCOUNTER → 2025-06-17 12:08 | Outpatient (CLI) | payer MEDICARE, OTHER, SELFPAY ==
--- NOTE | 2025-06-17 12:11 | DI.RAD.S_ITS ---
PROCEDURE: XR CHEST 2V INDICATIONS: PNEUMONIA TECHNIQUE: 2 views of the chest were acquired. COMPARISON: [facility], CR, XR CHEST 2V, 05/11/2025, 17:11. FINDINGS: Heart, mediastinum and pulmonary vascular: Heart is normal in size and configuration. Mediastinum is unremarkable. Pulmonary vascular is normal. Lungs: Clear Pleural spaces: Normal-no effusions or pneumothorax. IMPRESSION: Normal chest. Complete interval resolution in right lower lobe pneumonia Dictated by: Arun Renee M.D. on 06/18/2025 at 12:59 Approved by: Arun Renee M.D. on 06/18/2025 at 13:00
== END ==
PROVIDERS: PCP Family Medicine; Referring Provider Family Medicine; Visit Provider Family Medicine
DX: J18.9 Pneumonia, unspecified organism (principal)
CPT/HCPCS: 71046